=== PATIENT | female | born 1985 ===

== ENCOUNTER 2019-06-08 15:10 | Inpatient (IN) | payer OTHER ==
[2019-06-08] MEDS ORDERED: MINERAL OIL 30 ML ORAL LIQD PO PRN ×2 (15:35→16:38)
[2019-06-08] MEDS ORDERED: TERBUTALINE 1 MG/1 ML INJ IVP PRN (15:35)
[2019-06-08] MEDS ORDERED: TERBUTALINE 1 MG/1 ML INJ SUB-Q PRN (15:35)
[2019-06-08] MEDS ORDERED: BUTORPHANOL 2 MG/1 ML INJ IV PRN (15:35)
[2019-06-08] MEDS ORDERED: ePHEDrine SULFATE 50 MG/1 ML INJ IV PRN (15:35)
[2019-06-08] MEDS ORDERED: fentaNYL 100 MCG/2 ML INJ IV PRN (15:35)
[2019-06-08] MEDS ORDERED: LIDOCAINE (2%) 20 MG/1 ML VIAL 20 ML MDV INFILTRATI ONE (15:35)
[2019-06-08] MEDS ORDERED: OXYTOCIN DRIP 30 UNITS/500 ML BAG IV SCH ×3 (16:00→17:00)
[2019-06-08] MEDS ORDERED: OXYTOCIN 20 UNIT/1000ML DRIP 20 UNITS/1,000 ML BAG IV SCH (16:00)
[2019-06-08] MEDS ORDERED: LACTATED RINGERS 1,000 ML IV SCH (16:00)
[2019-06-08 16:38] LABS: Hematocrit 32.4 % (30.3-42.9); Hemoglobin 10.9 gm/dl (10.1-14.3); Mean Corpuscular HGB Conc 34 % (30-34); Mean Corpuscular Volume 92 fl (79-97); Platelet Count 178 K/mm3 (140-440); Red Blood Count 3.53 M/mm3 (3.65-5.03); Red Cell Distribution Width 13.6 % (13.2-15.2)
[2019-06-08] MEDS ORDERED: ONDANSETRON 4 MG/2 ML INJ IV PRN (16:38)
[2019-06-08] MEDS ORDERED: NALOXONE 0.4 MG/1 ML INJ IV PRN (16:38)
--- NOTE | 2019-06-08 16:48 | History and Physical Report ---
History of Present Illness Date of examination: 06/08/19 Date of admission: 06/08/19 15:10 Chief complaint: Advanced Cervical Dilation History of present illness: Late entry to care at [facility], course is uncomplicated. Past History Past Medical History: no pertinent history Past Surgical History: no surgical history Family/Genetic History: none Social history: no significant social history - Obstetrical History Expected Date of Delivery: 06/05/19 Actual Gestation: 40 Week(s) 3 Day(s) : 6 Para: 5 Hx # Term Pregnancies: 5 Number of Living Children: 5 #1 Gender: Female year: , Birthweight: 3.175 kg Method of Delivery: Vaginal Gestational age at delivery: 40 #2 Gender: Male year: , Birthweight: 3.629 kg Method of Delivery: Vaginal Gestational age at delivery: 40 #3 Infant Gender: Female year: , Birthweight: 6 kg Method of Delivery: Vaginal Gestational age at delivery: 40 Complications: none #4 Infant Gender: Male year: 2, Birthweight: 3.175 kg Method of Delivery: Vaginal Gestational age at delivery: 40 Complications: none #5 Gender: Female year: ,011 Birthweight: 3.629 kg Method of Delivery: Vaginal Gestational age at delivery: 40 Complications: none Medications and Allergies Active Meds: Active Medications Butorphanol Tartrate (Stadol) 2 mg IV Q2H PRN PRN Reason: Pain , Severe (7-10) Ephedrine Sulfate (Ephedrine Sulfate) 10 mg IV Q2M PRN PRN Reason: Hypotension Fentanyl (Sublimaze) 100 mcg IV Q2H PRN PRN Reason: Labor Pain Oxytocin/Sodium Chloride (Pitocin/Ns 20 Unit/1000ml Drip) 20 units in 1,000 mls @ 125 mls/hr IV DIRECT MATTHEW Oxytocin/Sodium Chloride (Pitocin/Ns 30 Unit/500ml) 30 units in 500 mls @ 1 mls/hr IV TITR MATTHEW; Protocol Oxytocin/Sodium Chloride (Pitocin/Ns 30 Unit/500ml) 30 units in 500 mls @ 0 mls/hr IV TITR MATTHEW; Protocol Lactated Ringer's (Lactated Ringers) 1,000 mls @ 125 mls/hr IV DIRECT MATTHEW Oxytocin/Sodium Chloride (Pitocin/Ns 30 Unit/500ml) 30 units in 500 mls @ 4 mls/hr IV TITR MATTHEW; Protocol Mineral Oil (Mineral Oil) 30 ml PO QHS PRN PRN Reason: Constipation Mineral Oil (Mineral Oil) 30 ml PO QHS PRN PRN Reason: Constipation Naloxone HCl (Naloxone) 0.1 mg IV Q2MIN PRN PRN Reason: Res Rate </= 8 or 02 SAT < 92% Ondansetron HCl (Zofran) 4 mg IV Q8H PRN PRN Reason: Nausea And Vomiting Terbutaline Sulfate (Brethine) 0.25 mg SUB-Q ONCE PRN PRN Reason: Hyperstimulation/Hypertonicity Terbutaline Sulfate (Brethine) 0.25 mg IVP ONCE PRN PRN Reason: Hyperstimulation/Hypertonicity Review of Systems All systems: negative - Vital Signs Vital signs: Vital Signs Pulse Pulse Ox 86 97 06/08/19 15:45 06/08/19 15:45 Temp Pulse Resp BP Pulse Ox 88 107/67 98 06/08/19 16:40 06/08/19 15:46 06/08/19 16:40 - Physical Exam Breasts: Positive: normal Cardiovascular: Regular rate Lungs: Positive: Clear to auscultation, Normal air movement Abdomen: Positive: normal appearance, soft, normal bowel sounds Genitourinary (Female): Positive: normal external genitalia, normal perenium Vagina: Positive: normal moisture Uterus: Positive: enlarged Anus/Rectum: Positive: normal perianal skin - Obstetrical FHR: category 1 Uterine Contraction Monitor Mode: External Cervical Dilatation: 7 (AROM of a copious amount of clear fluid at 1630) Cervical Effacement Percentage: 70 station: -1 Uterine Contraction Pattern: Irregular Uterine Tone Measurement Phase: Resting Uterine Contraction Intensity: Mild Results Result Diagrams: 06/08/19 16:08 Abnormal lab results 06/08/19 Range/Units 16:08 RBC 3.53 L (3.65-5.03) M/mm3 All other labs normal. Assessment and Plan A: IUP @ 40 3/7 Weeks Category I Tracing Advanced Cervical Dilation GBS Negative P: Admit to L&D Per Routine Orders AROM Pitocin Augmentation IV Pain Control
[2019-06-08] MEDS ORDERED: diphenhydrAMINE 25 MG CAP PO PRN (18:18)
[2019-06-08] MEDS ORDERED: WITCH HAZEL/ GLYCERIN PAD TP PRN (18:18)
[2019-06-08] MEDS ORDERED: MAGNESIUM HYDROXIDE (MOM) ORAL LIQD UDC PO PRN (18:18)
[2019-06-08] MEDS ORDERED: LANOLIN/ZINC/DIMETHICONE (LANSINOH) 7 GM TP PRN (18:18)
[2019-06-08] MEDS ORDERED: HYDROcodone/ACETAMINOPHEN 5-325 MG TAB PO PRN (18:18)
--- NOTE | 2019-06-08 18:32 | Procedure Note ---
OB Delivery Note - Delivery Date of Delivery: 06/08/19 (1804) Surgeon: TERESA BOWLES Estimated blood loss: 200cc - Vaginal Delivery presentation: vertex Delivery position: OA Intrapartum events: none Delivery induction: none Delivery augmentation: rupture of membranes, pitocin Delivery monitor: external FHT, external uterine Route of delivery: Delivery placenta: spontaneous Delivery cord: 3 umbilical vessels Episiotomy: none Delivery laceration: none Anesthesia: none Delivery comments: of a live 8'7 male infant over a intact perineum under no pain control with Apgars of 8 and 9 at 1804 on 06/08/2019. directly to maternal abd/chest, skin to skin contact. Spontaneous delivery of placenta complete and intact with [place] presenting at 1808. Fundus is firm and midline located 4 below the U. Lochia is scant. Delayed cord clamping and cutting; Cord cut by the Father of the Baby. Cord blood collected; Placenta discarded. - A at 1 minute: 8 at 5 minutes: 9 Infant Gender: Male (8'7)
[2019-06-09] MEDS: IBUPROFEN 600 MG TAB PO SCH ×3 (00:01→18:37)
[2019-06-09 05:52] LABS: Hematocrit 31.9 % (30.3-42.9); Hemoglobin 10.5 gm/dl (10.1-14.3)
--- NOTE | 2019-06-09 10:17 | Progress Note ---
Assessment and Plan - Patient Problems (1) Status post normal vaginal delivery Current Visit: Yes Status: Acute Plan to address problem: PPD 1 - stable Continue routine orders Discharge to home later today Follow-up at [facility] as needed or in 6 weeks for exam (2) Single live Current Visit: Yes Status: Acute Subjective - Subjective Date of service: 06/09/19 Principal diagnosis: PPD #1; s/p Interval history: see H&P and OB/Delivery Procedure Note Patient reports: appetite normal, voiding normally, pain well controlled, ambulating normally, no dizzy ambulation Wallace: doing well, nursing well Objective - Vital Signs Latest vital signs: Vital Signs Temp Pulse Resp BP BP Pulse Ox 06/09/19 08:27 98.3 F 72 16 106/63 97 06/09/19 04:38 98.2 F 71 20 100/50 98 06/09/19 00:00 98.4 F 71 18 108/54 96 06/08/19 19:50 67 98 06/08/19 19:46 69 133/72 06/08/19 19:45 69 99 06/08/19 19:40 66 99 06/08/19 19:35 68 98 06/08/19 19:31 67 151/90 06/08/19 19:30 66 98 06/08/19 19:25 70 98 06/08/19 19:20 68 98 06/08/19 19:16 67 147/87 06/08/19 19:15 68 97 06/08/19 19:10 68 97 06/08/19 19:05 71 98 06/08/19 19:01 65 145/84 06/08/19 19:00 70 98 06/08/19 18:55 69 98 06/08/19 18:50 73 98 06/08/19 18:46 74 140/67 06/08/19 18:45 71 98 06/08/19 18:40 72 98 06/08/19 18:35 73 97 06/08/19 18:32 72 138/65 06/08/19 18:30 70 98 06/08/19 18:25 70 97 06/08/19 18:20 75 97 06/08/19 17:58 88 76 L 06/08/19 17:55 81 97 06/08/19 17:50 74 97 06/08/19 17:45 71 98 06/08/19 17:40 74 97 06/08/19 17:35 73 98 06/08/19 17:30 73 97 06/08/19 17:25 70 97 06/08/19 17:20 74 97 06/08/19 17:15 79 97 06/08/19 17:10 75 97 06/08/19 17:05 71 97 06/08/19 17:00 75 98 06/08/19 16:57 98.7 F 75 18 107/67 97 06/08/19 16:55 71 97 06/08/19 16:50 76 97 06/08/19 16:45 73 97 06/08/19 16:40 88 98 06/08/19 16:35 87 98 06/08/19 16:30 76 97 06/08/19 16:25 74 97 06/08/19 16:20 82 95 06/08/19 16:15 81 96 06/08/19 16:10 76 95 06/08/19 16:05 77 96 06/08/19 16:00 68 96 06/08/19 15:55 75 96 06/08/19 15:50 74 97 06/08/19 15:46 78 107/67 06/08/19 15:45 86 97 Intake and Output 06/08/19 06/09/19 06/09/19 23:59 07:59 15:59 Intake Total 120 Output Total 600 400 Balance -480 -400 Intake: Oral 120 Output: Urine 600 400 Void 600 400 Other: Total, Intake Amount 120 Total, Output Amount 600 400 # Voids Void 1 2 Weight 67.132 kg Estimated Blood Loss 200 - Exam Cardiovascular: Present: Regular rate Lungs: Present: Clear to auscultation, Normal air movement Abdomen: Present: normal appearance, soft Vulva: both: normal Uterus: Present: normal, firm, fundal height at umbilicus Extremities: Present: normal - Labs Labs: Abnormal lab results 06/08/19 Range/Units 16:08 RBC 3.53 L (3.65-5.03) M/mm3
--- NOTE | 2019-06-09 10:34 | Discharge Summary ---
Providers - Providers Date of Admission: 06/08/19 15:10 Date of discharge: 06/09/19 Attending physician: USHA SOTO MD Primary care physician: USHA SOTO MD Hospitalization Reason for admission: active labor, IUP at term Delivery: Episiotomy: none Laceration: none Other procedures: none complications: none Discharge diagnosis: IUP at term delivered [place] baby: male Hospital course: Uncomplicated Condition at discharge: Stable Disposition: DE-01 TO HOME OR SELFCARE - Discharge Diagnoses (1) Status post normal vaginal delivery Status: Acute (2) Single live Status: Acute Plan - Provider Discharge Summary Activity: routine, no sex for 6 weeks, no heavy lifting 4 weeks, no strenuous exercise Diet: routine Instructions: routine Additional instructions: [] Smoking cessation referral if applicable(refer to patient education folder for contact #) [] Refer to [facility] Booklet Call your doctor immediately for: * Fever > 100.5 * Heavy vaginal bleeding ( >1 pad per hour) * Severe persistent headache * Shortness of breath * Reddened, hot, painful area to leg or breast * Drainage or odor from incision. * Keep incision clean and dry at all times and follow doctor's instructions regarding bathing/showering - Follow up plan Follow up: USHA SOTO MD [Primary Care Provider] - 6 Weeks (Follow-up at [facility] as needed or in 6 weeks for exam)
[2019-06-09] MEDS ORDERED: FLU VACC QUAD 2019-20 (3 YR UP)/PF 60 MCG/0.5 ML SYRINGE IM ONE (12:00)
[2019-06-09] MEDS: PRENATAL VIT27-FE FUMARATE-FOLIC ACID VIT TAB PO SCH (18:35)
[2019-06-10] MEDS: PRENATAL VIT27-FE FUMARATE-FOLIC ACID VIT TAB PO SCH (09:39)
[2019-06-10] MEDS: IBUPROFEN 600 MG TAB PO SCH (09:39)
[2019-06-10 13:28] VITALS: BP 123/60
== END 2019-06-10 13:30 | disposition home or self-care (01) | DRG 807 ==
LOC: LD 15:10 → OB 20:56
PROVIDERS: ADMIT Obstetrics & Gynecology; ATTEND Obstetrics & Gynecology
PROC: 10E0XZZ Delivery of Products of Conception, External Approach (ICD-10-PCS; principal; 2019-06-08)
PROC: 10907ZC Drainage of Amniotic Fluid, Therapeutic from Products of Conception, Via Natural or Artificial Opening (ICD-10-PCS; 2019-06-08)
DX: O80 Encounter for full-term uncomplicated delivery (principal); Z37.0 Single live birth; Z3A.40 40 weeks gestation of pregnancy
CPT/HCPCS: 36415; 85014; 85018; 85027; 86850; 86900; 86901; G0378; J0690; J2590; J7120